=== PATIENT | male | born 1950 | race Caucasian/White ===

== ENCOUNTER 2020-08-20 20:46 | Emergency (ER) | payer OTHER ==
[~2020-08-20] VITALS: Ht 157.5 cm; Wt 76.4 kg
[2020-08-20] MEDS ORDERED: ASPI-728 PO (21:33)
[2020-08-20] MEDS ORDERED: GLYB5 PO (21:33)
[2020-08-20] MEDS ORDERED: INSLAN SQ (21:33)
[2020-08-20] MEDS ORDERED: INSU100V SQ (21:33)
[2020-08-21] MEDS ORDERED: ACETAMINOPHEN 325 MG TABLET PO ONE (00:15)
[2020-08-21 01:55] VITALS: BP 135/72
== END 2020-08-21 02:30 | disposition home or self-care (01) ==
LOC: EMS 20:46
DX: S20.212A Contusion of left front wall of thorax, initial encounter (principal); E11.9 Type 2 diabetes mellitus without complications; I10 Essential (primary) hypertension; Z79.4 Long term (current) use of insulin; Z79.82 Long term (current) use of aspirin; Y04.2XXA Assault by strike against or bumped into by another person, initial encounter; Y93.89 Activity, other specified; Y92.89 Other specified places as the place of occurrence of the external cause; Y99.8 Other external cause status
CPT/HCPCS: 71101

== ENCOUNTER → 2023-10-25 | Emergency (ER) | payer OTHER ==
[~2023-10-25] VITALS: Ht 172.7 cm; Wt 77.0 kg
[~2023-10-25] MED LIST: ASPI-1450 PO; GLYB-145 PO; INSLAN SQ; INSU100V SQ; INSULIN REGULAR, HUMAN 100 UNITS/ML SQ ONE
[2023-10-25 20:35] VITALS: BP 142/64; PULSE 67; RESP 20; TEMP 98.3
[2023-10-25 20:46] LABS: GLUCOMETER DEV NAME(LOC) ER.6; GLUCOSE,POINT OF CARE 367 MG/DL (70-110)
[2023-10-25 21:34] LABS: BASOPHILS % (AUTO) 0.3 % (0.0-2.0); EOSINOPHILS % (AUTO) 2.3 % (1.0-6.0); HEMATOCRIT 38.9 % (41-53); LYMPHOCYTES # (AUTO) 2.3 K/uL (1.0-4.8); LYMPHOCYTES % (AUTO) 20.8 % (22.0-44.0); MEAN CORPUSCULAR HGB CONC 33.4 G/dL (31.0-37.0); MEAN CORPUSCULAR VOLUME 93 fL (80-100); MONOCYTES # (AUTO) 0.9 K/uL (0.1-1.0); MONOCYTES % (AUTO) 8.1 % (2.0-9.0); NEUTROPHILS # (AUTO) 7.7 K/uL (1.8-7.7); NEUTROPHILS % (AUTO) 68.5 % (40.0-70.0); PLATELET COUNT (AUTO) 250 K/uL (150-450); RED BLOOD CELL COUNT(AUTO) 4.19 MIL/uL (4.50-5.90); RED CELL DISTRIBUTION WIDTH 13.3 % (11.5-14.5); WHITE BLOOD COUNT (AUTO) 11.2 K/uL (4.5-11.0)
[2023-10-25 21:44] LABS: ANION GAP 8 mmol/L (8-16); CALCIUM, TOTAL 8.9 mg/dL (8.8-10.5); CARBON DIOXIDE 27 mmol/L (22-29); CHLORIDE 100 mmol/L (98-107); CREATININE 0.88 mg/dL (0.60-1.30); GLOMERULAR FILTR. RATE CALC > 60 mL/min (>60); GLUCOSE,RANDOM 365 mg/dL (70-110); POTASSIUM 4.6 mmol/L (3.5-5.1); SODIUM SERUM 135 mmol/L (136-145); UREA NITROGEN, BLOOD 23 mg/dL (7-18)
[2023-10-25 21:50] LABS: ALANINE AMINOTRANSFERASE 59 U/L (12-78); ALBUMIN 3.6 g/dL (3.4-5.0); ALKALINE PHOSPHATASE 92 U/L (46-116); ASPARTATE AMINOTRANSFERASE 22 U/L (15-37); BILIRUBIN,TOTAL 0.4 mg/dL (0.1-1.0); TOTAL PROTEIN, SERUM 6.8 g/dL (6.4-8.2)
[2023-10-25 22:05] LABS: ACETONE,BLOOD NEGATIVE (NEGATIVE)
[2023-10-25] MEDS: SODIUM CHLORIDE 0.9% 1,000 ML IV ONE (23:30)
[2023-10-26 01:07] LABS: APPEARANCE,URINE CLEAR (CLEAR); BILIRUBIN,URINE NEGATIVE (NEGATIVE); COLOR,URINE LIGHT YELLOW (YELLOW); GLUCOSE, URINE (UA) >=1000 mg/dL (NEGATIVE); KETONES,URINE NEGATIVE (NEGATIVE); LEUKOCYTE ESTERASE ,URINE NEGATIVE (NEGATIVE); NITRATE,URINE NEGATIVE (NEGATIVE); OCCULT BLOOD,URINE NEGATIVE (NEGATIVE); PH,URINE 5.5 (5.0-8.0); PROTEIN,URINE NEGATIVE (NEGATIVE); SPECIFIC GRAVITIY, URINE 1.035 (1.003-1.030); UROBILINOGEN,URINE <=1.0 mg/dL (<=1.0)
[2023-10-26 01:23] LABS: BACTERIA,URINE None Seen /HPF (None Seen); HYALINE CASTS, URINE 0-2 /LPF (None Seen); RBC,URINE None Seen /HPF (0-2); SQUAMOUS EPITHELIAL CELL,UR Few /LPF (None Seen); WBC,URINE None Seen /HPF (0-5)
== END | disposition still patient (30) ==
LOC: EMS 20:35
DX: E11.65 Type 2 diabetes mellitus with hyperglycemia (principal); I10 Essential (primary) hypertension
CPT/HCPCS: 99283; 96360; 80053; 81001; 82009; 82962; 85025; 36415; J7030